=== PATIENT | female | born 1990 | race Caucasian/White ===

== ENCOUNTER 2023-09-19 21:31 | Emergency (ER) | payer OTHER ==
[~2023-09-19] VITALS: Ht 170.1 cm; Wt 104.3 kg
[2023-09-19] MEDS ORDERED: AMOX-CLAV 875-1 EACH PO (22:01)
== END 2023-09-19 22:06 | disposition home or self-care (01) ==
LOC: ED 21:31
DX: H66.91 Otitis media, unspecified, right ear (principal)